=== PATIENT | male | born 1990 | race Caucasian/White ===

== ENCOUNTER 2024-05-18 13:21 | Emergency (ER) | payer OTHER ==
[~2024-05-18] VITALS: Ht 190.5 cm; Wt 125.0 kg
[2024-05-18 13:51] VITALS: TEMP 98.2
[2024-05-18 14:15] LABS: COLLECTION METHOD CLEAN CATCH
[2024-05-18 14:19] LABS: PH 5.5 (5.0-8.5); URINE APPEARANCE CLEAR (CLEAR/HAZY); URINE BLOOD NEGATIVE (NEGATIVE); URINE COLOR YELLOW (YELLOW); URINE GLUCOSE NEGATIVE (NEGATIVE); URINE KETONE NEGATIVE (NEGATIVE); URINE NITRATE NEGATIVE (NEGATIVE); URINE PROTEIN(semi-quant) NEGATIVE (NEGATIVE); URINE UROBILINOGEN 0.2 E.U/dL (0.2-1.0)
[2024-05-18] MEDS ORDERED: BACTRIM DS 8001 TAB PO (19:38)
[2024-05-18 19:55] VITALS: BP 172/98; PULSE 87
== END 2024-05-18 19:55 | disposition home or self-care (01) ==
LOC: COL.ER 13:21
PROVIDERS: Emergency Medicine
DX: N50.812 Left testicular pain (principal); Z88.0 Allergy status to penicillin; Z87.891 Personal history of nicotine dependence